=== PATIENT | female | born 1955 | race Caucasian/White ===

== ENCOUNTER 2016-08-28 06:40 | Emergency (ER) | payer OTHER ==
[2016-08-28] MEDS ORDERED: ONDANSETRON 4MG/2ML VIAL (J2405) As Ordered ONE (08:42)
[2016-08-28] MEDS ORDERED: MORPHINE 4 MG/ML 1ML SYRINGE As Ordered ONE (08:42)
[2016-08-28 09:02] LABS: MEAN CORPUSCULAR HGB CONC 33.8 g/dl (32.0-36.5); MEAN CORPUSCULAR VOLUME 88.6 fl (80.0-96.0); RED CELL DISTRIBUTION WIDTH 12.9 % (11.5-14.5); WHITE BLOOD COUNT 9.6 K/mm3 (4.0-10.0)
[2016-08-28 09:35] LABS: ALBUMIN/GLOBULIN RATIO 1.03 (1.00-1.93); BILIRUBIN,DIRECT 0.1 MG/DL (0.0-0.2); BILIRUBIN,TOTAL 0.4 MG/DL (0.2-1.0); CALCIUM LEVEL 9.6 MG/DL (8.8-10.2); CREATININE FOR GFR 1.18 MG/DL (0.55-1.02); GLOMERULAR FILTRATION RATE 49.4 (>45); POTASSIUM SERUM 4.3 MEQ/L (3.5-5.1); TOTAL PROTEIN 7.9 GM/DL (6.4-8.2)
[2016-08-28] MEDS ORDERED: GASTROGRAFIN SOLUTION 30ML (Q9963) As Ordered ONE (09:57)
[2016-08-28] MEDS ORDERED: ISOVUE-370 76% 100ML VIAL (Q9967) As Ordered ONE (11:05)
--- NOTE | 2016-08-28 12:13 | REP ---
Clinical: Acute right-sided abdominal pain. Technique: Axial contrast enhanced images from the lung bases to the pubic symphysis using oral and 100 ml Isovue 370 intravenous contrast material with coronal and sagittal re-formations. Findings: Lung bases are relatively clear and without consolidation, pleural effusion or obvious pneumothorax. Visualized portions of the heart and pericardium suggest mild cardiomegaly along with atherosclerotic changes to the coronary arteries. Liver, spleen, pancreas, gallbladder, bilateral adrenal glands and kidneys are relatively normal. Few renal hypodensities measuring up to 19 mm likely represent simple renal cysts. The enteric system is without obstruction or acute inflammatory process. Colonic diverticulosis noted without acute diverticulitis. Pelvis demonstrates partially collapsed bladder and age-appropriate uterus/adnexa. No pelvic fluid or ascites. No adenopathy. Atherosclerotic changes of the aorta and branch vessels noted without aneurysm. Musculoskeletal structures demonstrate degenerative changes primarily involving the thoracolumbar spine without focal osseous abnormality. Impression: Colonic and predominately sigmoid diverticulosis without acute diverticulitis. Bilateral renal cysts up to 19 mm. Degenerative changes to the thoracolumbar spine. No pelvic fluid/ascites or obvious acute abdominal/pelvic pathology. Signed by Griffin Garduno MD 08/28/2016 12:05 P
--- NOTE | 2016-08-28 13:50 | EDDOCDS ---
Nurse's Notes [facility] Name: Guera Bansal Age: 61 yrs Sex: Female : 1955 Arrival Date: 08/28/2016 Time: 06:40 Bed 8 Private MD: Diagnosis: Generalized abdominal pain Presentation: 08/28 07:01 Presenting complaint: Patient states: "I thought I was passing kidney stones, but it jc4 huts from my belly button over and I noticed that I am swollen". States pain started 4 days ago. Complains of pain that began in umbilical area that radiates into her right flank. Suicide/Homicide risk assessment- the patient denies having any suicidal and/or homicidal ideations and does not present with any other emotional, behavioral or mental health complaints. Transition of care: patient was not received from another setting of care. 07:01 Acuity: PRICILLA Level 3 jc4 07:01 Method Of Arrival: Walkin/Carried/Asstd jc4 07:04 Status: Patient is not a service center representative or dependent. jc4 07:34 Adult Sepsis Screening: The patient does not have new or worsening altered mentation. hs1 Patient's respiratory rate is less than 22. Systolic blood pressure is greater than 100. Patient has a qSOFA score of 0- Negative Sepsis Screen. Triage Assessment: 07:05 General: Appears uncomfortable. Pain: Pain currently is 9 out of 10 on a pain scale. Pt jc4 Declines HIV testing. Historical: - Allergies: Codeine Sulfate (Vomit); - Home Meds: 1. none - PMHx: Kidney stones; Hypertension; - PSHx: ; Lithotripsy; - Social history: Smoking status: Patient uses tobacco products, light tobacco smoker. No barriers to communication noted, The patient speaks fluent Thai. - Family history: Not pertinent. - : The pt / caregiver states he / she is not on anticoagulants. Home medication list is obtained from the patient. - Exposure Risk Screening:: None identified. Screenin:33 Screening information is obtained from the patient. Fall risk: No risks identified. hs1 Assistance ADL's: requires no assistance with activities of daily living. Abuse/DV Screen: The patient / caregiver reports he/she is: not in a situation that causes fear, pain or injury. Nutritional screening: No deficits noted. Advance Directives: There is no active DNR order. home support is adequate. Assessment: 07:28 General: pt reports that while coughing felt like something was ripping and then cough hs1 went away 4 days ago and the pain never went away and has gotten worse. Pt states feels swollen in right upper abdominal and pain is intense.. Pain: Location: right upper quadrant Pain currently is 9 out of 10 on a pain scale. Quality of pain is described as tender, piercing. Neurological: Level of Consciousness is awake, alert, obeys commands. Respiratory: Airway is patent Respiratory effort is even, unlabored, Respiratory pattern is regular, symmetrical. GI: Abdomen is non- distended Bowel sounds present X 4 quads. Abd is tender to palpation in right upper quadrant Guarding noted in right upper quadrant upper right abdominal quadrant upon palpation rigid. Pt reports feels tight and "ripping". Derm: Skin is pink, warm & dry. normal. 08:15 General: Appears Pt speaking with resident review plan of care. Pt still in pain on hs1 right side. No other needs noted. . 08:55 General: Pt tolerated IV well Pt states that she can feel pain medication after hs1 administration. No other needs noted. Pt states that she feels more at ease and feels "giddy". 09:20 Reassessment: Patient appears in no apparent distress at this time. Patient states hs1 feeling better. Patient states symptoms have improved. Pt states pain down to 5 and she can breath easier. Pt noted to be sitting upright on stretcher now chatting with daughter. . 09:20 Adult Sepsis Screening: The patient does not have new or worsening altered mentation. hs1 Patient's respiratory rate is less than 22. Systolic blood pressure is greater than 100. Patient has a qSOFA score of 0- Negative Sepsis Screen. 10:25 General: Appears in no apparent distress, comfortable. Pain: Location: right upper hs1 quadrant Pain currently is 5 out of 10 on a pain scale. Respiratory: Airway is patent Respiratory effort is even, unlabored, Respiratory pattern is regular, symmetrical. GI: No deficits noted. Denies nausea. Derm: Skin is pink, warm & dry. normal. 11:58 Reassessment: Patient appears in no apparent distress at this time. Pt tolerated CT hs1 well with no problems. Pt states resting on stretcher is uncomfortable so she is sitting in a chair at present stating that is much more comfortable. . 12:53 General: Appears in no apparent distress, to be sleeping. Pt appears to be resting with hs1 no needs. Friend returns at present time. Awaiting further plan of care. . 12:55 Adult Sepsis Screening: Patient's respiratory rate is less than 22. Systolic blood hs1 pressure is greater than 100. Patient has a qSOFA score of 0- Negative Sepsis Screen. 13:15 Reassessment: Patient appears in no apparent distress at this time. Patient states hs1 feeling better. Patient states symptoms have improved. Pt speaking with resident about eating and drinking before she goes home. . 13:48 General: Appears in no apparent distress, comfortable, Behavior is appropriate for age, aa3 cooperative. Neurological: Level of Consciousness is awake, alert, Oriented to person, place, time. Respiratory: Airway is patent Respiratory effort is even, unlabored, Respiratory pattern is regular, symmetrical. Vital Signs: 07:05 Pulse 120; Resp 20; Temp 98.4(TE); Pulse Ox 98% on R/A; Height 5 ft. 3 in. (160.02 cm); jc4 Pain 9/10; 07:08 BP 178 / 104; jc4 07:10 BP 184 / 110 LA (man/lg); dls 07:52 BP 172 / 98 LA; hs1 07:52 BP 162 / 88 RA; Pulse 127; hs1 09:20 BP 145 / 94 (auto/); Pulse 107; Resp 18; Pulse Ox 98% ; Pain 5/10; hs1 Vitals: 07:05 Log In Time: August 28, 2016 at 06:39. jc4 ED Course: 06:42 Patient visited by Jessenia Prince. gjb 06:42 Patient moved to Waiting gjb 07:04 Triage Initiated jc4 07:10 Delores Lundy,VERNELL is Primary Nurse. dls 07:10 Patient moved to 8 dls 07:22 Primary Nurse role handed off by Delores Lundy RN deg 07:26 Moris Rojo MD is Attending Physician. br1 07:28 Patient visited by Carrol Mathew RN. hs1 07:34 The patient / caregiver is instructed regarding the plan of care and ED course. hs1 08:30 Patient visited by Carrol Mathew RN. hs1 08:39 Patient visited by Carie Guajardo DO. jo4 08:40 [facility] br1 08:55 Liver Profile Sent. hs1 08:55 Lipase Sent. hs1 08:55 Amylase Sent. hs1 08:55 BMP Sent. hs1 08:55 CBC Sent. hs1 08:56 Patient visited by Moris Rojo MD. br1 08:56 Inserted saline lock: 18 gauge in left antecubital area and blood collected. The hs1 patient tolerated the procedure well. 09:24 Patient name changed from Guera\\S\\K\\S\\Rolf\\S\\ to Guera\\S\\Eliana\\S\\Rolf. EDMS 09:27 [facility] [place] Agreement was scanned into iGl[employer] and attached to record. lg 09:31 Patient visited by Carrol Mathew RN. hs1 10:07 Patient visited by Carrol Mathew RN. hs1 10:51 Patient visited by Carrol Mathew RN. hs1 11:26 Patient visited by Carrol Mathew RN. hs1 11:58 Patient visited by Floyd Cortez PCA. jlf 12:15 CT ABD & PELVIS: IV and Oral Contrast Returned. EDMS 12:42 Patient visited by Floyd Cortez PCA. jlf 13:15 Patient visited by Carrol Mathew RN. hs1 13:23 [facility] is Referral Physician. jo4 13:48 Discontinued IV intact, bleeding controlled, No redness/swelling at site. No procedures aa3 done that require assistance. 13:49 Patient visited by Ruby Huffman RN. aa3 Administered Medications: 08:42 Not Given (Order changed): Ondansetron ODT Oral Disintegrating Tablet 4 mg PO once jo4 08:55 Drug: morphine 4 mg [morphine 4 mg/mL intravenous cartridge (1 mL)] Route: IVP; Site: hs1 left antecubital; 09:20 Follow up: Response: Confirmed pt not driving.; Pain is decreased; see vitals in nurses hs1 notes 08:57 Drug: Ondansetron 4 mg [ondansetron HCl 2 mg/mL intravenous solution (2 mL)] Route: hs1 IVP; Site: left antecubital; 10:05 Drug: Diatrizoate Meglumine & Sodium 10 ml [diatrizoate meglumine and diat.sodium 66 hs1 %-10 % oral solution (10 mL)] Route: PO; 10:35 Drug: Diatrizoate Meglumine & Sodium 10 ml [diatrizoate meglumine and diat.sodium 66 hs1 %-10 % oral solution (10 mL)] Route: PO; Intake: Order Results: Lab Order: CBC; SPEC'08/28/16 08:53 Test: WHITE BLOOD COUNT; Value: 9.6; Range: 4.0-10.0; Units: K/mm3; Status: F Test: RED BLOOD COUNT; Value: 5.03; Range: 4.00-5.40; Units: M/mm3; Status: F Test: HEMOGLOBIN; Value: 15.1; Range: 12.0-16.0; Units: g/dl; Status: F Test: HEMATOCRIT; Value: 44.6; Range: 36.0-47.0; Units: %; Status: F Test: MEAN CORPUSCULAR VOLUME; Value: 88.6; Range: 80.0-96.0; Units: fl; Status: F Test: MEAN CORPUSCULAR HEMOGLOBIN; Value: 30.0; Range: 27.0-33.0; Units: pg; Status: F Test: MEAN CORPUSCULAR HGB CONC; Value: 33.8; Range: 32.0-36.5; Units: g/dl; Status: F Test: RED CELL DISTRIBUTION WIDTH; Value: 12.9; Range: 11.5-14.5; Units: %; Status: F Test: PLATELET COUNT, AUTOMATED; Value: 331; Range: 150-450; Units: k/mm3; Status: F Lab Order: BMP; SPEC08/28/16 08:53 Test: GLUCOSE, FASTING; Value: 125; Range: 80-110; Abnormal: Above high normal; Units: MG/DL; Status: F Test: BLOOD UREA NITROGEN; Value: 16; Range: 7-18; Units: MG/DL; Status: F Test: CREATININE FOR GFR; Value: 1.18; Range: 0.55-1.02; Abnormal: Above high normal; Units: MG/DL; Status: F Test: GLOMERULAR FILTRATION RATE; Value: 49.4; Range: >45; Status: F Test: SODIUM LEVEL; Value: 140; Range: 136-145; Units: MEQ/L; Status: F Test: POTASSIUM SERUM; Value: 4.3; Range: 3.5-5.1; Units: MEQ/L; Status: F Test: CHLORIDE LEVEL; Value: 103; Range: 98-107; Units: MEQ/L; Status: F Test: CARBON DIOXIDE LEVEL; Value: 26; Range: 21-32; Units: MEQ/L; Status: F Test: ANION GAP; Value: 11; Range: 8-16; Units: MEQ/L; Status: F Test: CALCIUM LEVEL; Value: 9.6; Range: 8.8-10.2; Units: MG/DL; Status: F Test Note: ; Units are mL/min/1.73 m2 Chronic Kidney Disease Staging per NKF: Stage I & II GFR >=60 Normal to Mildly Decreased Stage III GFR 30-59 Moderately Decreased Stage IV GFR 15-29 Severely Decreased Stage V GFR <15 Very Little GFR Left ESRD GFR <15 on CURB HOP Lab Order: Amylase; SPEC08/28/16 08:53 Test: AMYLASE; Value: 40; Range: 25-115; Units: U/L; Status: F Lab Order: Lipase; SPEC08/28/16 08:53 Test: LIPASE; Value: 259; Range: 73-393; Units: U/L; Status: F Lab Order: Liver Profile; SPEC08/28/16 08:53 Test: AST/SGOT; Value: 20; Range: 15-37; Units: U/L; Status: F Test: ALT/SGPT; Value: 24; Range: 12-78; Units: U/L; Status: F Test: ALKALINE PHOSPHATASE; Value: 63; Range: 45-117; Units: U/L; Status: F Test: BILIRUBIN,TOTAL; Value: 0.4; Range: 0.2-1.0; Units: MG/DL; Status: F Test: BILIRUBIN,DIRECT; Value: 0.1; Range: 0.0-0.2; Units: MG/DL; Status: F Test: TOTAL PROTEIN; Value: 7.9; Range: 6.4-8.2; Units: GM/DL; Status: F Test: ALBUMIN; Value: 4.0; Range: 3.2-5.2; Units: GM/DL; Status: F Test: ALBUMIN/GLOBULIN RATIO; Value: 1.03; Range: 1.00-1.93; Status: F Radiology Order: CT ABD & PELVIS: IV and Oral Contrast Test: CT ABD & PELVIS: IV and Oral Contrast REASON FOR EXAMINATION: Abdomen Pain; Clinical: Acute right-sided abdominal pain.; ; Technique: Axial contrast enhanced images from the lung bases to the pubic; symphysis using oral and 100 ml Isovue 370 intravenous contrast material with; coronal and sagittal re-formations.; ; Findings:; Lung bases are relatively clear and without consolidation, pleural effusion or; obvious pneumothorax. Visualized portions of the heart and pericardium suggest; mild cardiomegaly along with atherosclerotic changes to the coronary arteries.; ; Liver, spleen, pancreas, gallbladder, bilateral adrenal glands and kidneys are; relatively normal. Few renal hypodensities measuring up to 19 mm likely; represent simple renal cysts. The enteric system is without obstruction or acute; inflammatory process. Colonic diverticulosis noted without acute diverticulitis.; Pelvis demonstrates partially collapsed bladder and age-appropriate; uterus/adnexa. No pelvic fluid or ascites. No adenopathy. Atherosclerotic; changes of the aorta and branch vessels noted without aneurysm. 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 jo4 13:48 Discharge Assessment: Patient awake, alert and oriented x 3. No cognitive and/or aa3 functional deficits noted. Patient verbalized understanding of disposition instructions. 13:49 Discharge Assessment: patient administered narcotics - yes. Pt provided with safe aa3 discharge. The following High Risk Discharge criteria are identified: None. Discharged to home ambulatory, with friend. Condition: good. Discharge instructions given to patient, Instructed on discharge instructions, follow up and referral plans. CT Study completed. Property :Personal belongings accompany Pt. 13:49 Patient left the ED. aa3 Signatures: Dispatcher [employer] EDMS Lashay Lopez, [employer] deg Emelyn Troy RN RN dls Romero Eaton, Reg Reg lg Moris Rojo MD MD br1 Carrol Mathew RN RN hs1 Maricarmen Canales RN RN jc4 Ruby Huffman RN RN aa3 Floyd Cortez, SHAR DIRECTOR OF ANESTHESIA SERVICES Jessenia Hernandez Jane, DO DO jo4 Corrections: (The following items were deleted from the chart) 12:55 09:20 Reassessment: Patient appears in no apparent distress at this time. Patient hs1 states feeling better. Patient states symptoms have improved. Pt states pain down to 5 and she can breath easier. Pt noted to be sitting upright on stretcher now chatting with daughter. . hs1 MTDD
--- NOTE | 2016-08-28 13:50 | EDDOCDS ---
Physician Documentation [facility] Name: Guera Bansal Age: 61 yrs Sex: Female : 1955 Arrival Date: 08/28/2016 Time: 06:40 Bed 8 Private MD: Disposition: 08/28 13:26 I have independently interviewed and examined the patient, and I agree with the br1 investigation, diagnosis and treatment plan as documented by the Resident. Disposition: 08/28/16 13:24 Discharged to Home/Self Care. Impression: Generalized abdominal pain. - Condition is Stable. - Discharge Instructions: Abdominal Pain, Adult. - Medication Reconciliation, Local Pharmacy Hours form. - Follow up: [facility]; When: 1 week; Reason: Recheck today's complaints. - Problem is new. - Symptoms have improved. - Notes: You were seen the emergency department for abdominal pain. Your laboratory results and CT scan of the abdomen and pelvis were within normal limits with no abnormalities noted. Your pain was controlled while in the ED with great improvement noted. Please return to the emergency department if your pain worsens or is not controlled using Aleve, as discussed. Please follow-up with your primary care provider in 1 week. Historical: - Allergies: Codeine Sulfate (Vomit); - Home Meds: 1. none - PMHx: Kidney stones; Hypertension; - PSHx: ; Lithotripsy; - Social history: Smoking status: Patient uses tobacco products, light tobacco smoker. No barriers to communication noted, The patient speaks fluent Cuban. - Family history: Not pertinent. - : The pt / caregiver states he / she is not on anticoagulants. Home medication list is obtained from the patient. - Exposure Risk Screening:: None identified. Vital Signs: 07:05 Pulse 120; Resp 20; Temp 98.4(TE); Pulse Ox 98% on R/A; Height 5 ft. 3 in. (160.02 cm); jc4 Pain 9/10; 07:08 BP 178 / 104; jc4 07:10 BP 184 / 110 LA (man/lg); dls 07:52 BP 172 / 98 LA; hs1 07:52 BP 162 / 88 RA; Pulse 127; hs1 09:20 BP 145 / 94 (auto/); Pulse 107; Resp 18; Pulse Ox 98% ; Pain 5/10; hs1 MDM: 08:32 Ondansetron ODT Oral Disintegrating Tablet 4 mg PO once ordered. jo4 08:32 CBC Ordered. EDMS 08:32 BMP Ordered. EDMS 08:32 Amylase Ordered. EDMS 08:32 Lipase Ordered. EDMS 08:32 Liver Profile Ordered. EDMS 08:37 morphine 4 mg IVP once ordered. jo4 08:37 IV Saline Lock ordered. jo4 08:41 Ondansetron 4 mg IVP once ordered. jo4 09:07 Financial registration complete. lg 09:27 [facility] Payment Agreement was scanned into Soapbox and attached to record. lg 09:41 CBC Reviewed. jo4 09:41 BMP Reviewed. jo4 09:42 Amylase Reviewed. jo4 09:42 Lipase Reviewed. jo4 09:43 Liver Profile Reviewed. jo4 09:44 CT ABD & PELVIS: IV and Oral Contrast Ordered. EDMS 10:18 Diatrizoate Meglumine & Sodium Liquid 10 ml PO once; mix in 290cc of water ordered. hs1 10:18 Diatrizoate Meglumine & Sodium Liquid 10 ml PO once; mix in 290cc of water ordered. hs1 Administered Medications: 08:42 Not Given (Order changed): Ondansetron ODT Oral Disintegrating Tablet 4 mg PO once jo4 08:55 Drug: morphine 4 mg [morphine 4 mg/mL intravenous cartridge (1 mL)] Route: IVP; Site: hs1 left antecubital; 09:20 Follow up: Response: Confirmed pt not driving.; Pain is decreased; see vitals in nurses hs1 notes 08:57 Drug: Ondansetron 4 mg [ondansetron HCl 2 mg/mL intravenous solution (2 mL)] Route: hs1 IVP; Site: left antecubital; 10:05 Drug: Diatrizoate Meglumine & Sodium 10 ml [diatrizoate meglumine and diat.sodium 66 hs1 %-10 % oral solution (10 mL)] Route: PO; 10:35 Drug: Diatrizoate Meglumine & Sodium 10 ml [diatrizoate meglumine and diat.sodium 66 hs1 %-10 % oral solution (10 mL)] Route: PO; Signatures: Dispatcher [employer] EDMS Romero Eaton, Reg Reg lg Moris Rojo MD MD br1 Carrol Mathew RN RN hs1 Maricarmen Canales RN RN jc4 Ruby Huffman RN RN aa3 Carie Guajardo DO DO jo4 The chart was reviewed and I authenticate all verbal orders and agree with the evaluation and treatment provided.Attachments: [facility] Payment Agreement lg MTDD
--- NOTE | 2016-08-30 14:51 | EDDOCDS ---
Physician Documentation [facility] Name: Guera Bansal Age: 61 yrs Sex: Female : 1955 Arrival Date: 08/28/2016 Time: 06:40 Bed 8 Private MD: Disposition: 08/28 13:26 I have independently interviewed and examined the patient, and I agree with the br1 investigation, diagnosis and treatment plan as documented by the Resident. Disposition: 08/28/16 13:24 Discharged to Home/Self Care. Impression: Generalized abdominal pain. - Condition is Stable. - Discharge Instructions: Abdominal Pain, Adult. - Medication Reconciliation, Local Pharmacy Hours form. - Follow up: [facility]; When: 1 week; Reason: Recheck today's complaints. - Problem is new. - Symptoms have improved. - Notes: You were seen the emergency department for abdominal pain. Your laboratory results and CT scan of the abdomen and pelvis were within normal limits with no abnormalities noted. Your pain was controlled while in the ED with great improvement noted. Please return to the emergency department if your pain worsens or is not controlled using Aleve, as discussed. Please follow-up with your primary care provider in 1 week. Historical: - Allergies: Codeine Sulfate (Vomit); - Home Meds: 1. none - PMHx: Kidney stones; Hypertension; - PSHx: ; Lithotripsy; - Social history: Smoking status: Patient uses tobacco products, light tobacco smoker. No barriers to communication noted, The patient speaks fluent Turkish. - Family history: Not pertinent. - : The pt / caregiver states he / she is not on anticoagulants. Home medication list is obtained from the patient. - Exposure Risk Screening:: None identified. Vital Signs: 07:05 Pulse 120; Resp 20; Temp 98.4(TE); Pulse Ox 98% on R/A; Height 5 ft. 3 in. (160.02 cm); jc4 Pain 9/10; 07:08 BP 178 / 104; jc4 07:10 BP 184 / 110 LA (man/lg); dls 07:52 BP 172 / 98 LA; hs1 07:52 BP 162 / 88 RA; Pulse 127; hs1 09:20 BP 145 / 94 (auto/); Pulse 107; Resp 18; Pulse Ox 98% ; Pain 5/10; hs1 MDM: 08:32 Ondansetron ODT Oral Disintegrating Tablet 4 mg PO once ordered. jo4 08:32 CBC Ordered. EDMS 08:32 BMP Ordered. EDMS 08:32 Amylase Ordered. EDMS 08:32 Lipase Ordered. EDMS 08:32 Liver Profile Ordered. EDMS 08:37 morphine 4 mg IVP once ordered. jo4 08:37 IV Saline Lock ordered. jo4 08:41 Ondansetron 4 mg IVP once ordered. jo4 09:07 Financial registration complete. lg 09:27 [facility] Payment Agreement was scanned into [employer] and attached to record. lg 09:41 CBC Reviewed. jo4 09:41 BMP Reviewed. jo4 09:42 Amylase Reviewed. jo4 09:42 Lipase Reviewed. jo4 09:43 Liver Profile Reviewed. jo4 09:44 CT ABD & PELVIS: IV and Oral Contrast Ordered. EDMS 10:18 Diatrizoate Meglumine & Sodium Liquid 10 ml PO once; mix in 290cc of water ordered. hs1 10:18 Diatrizoate Meglumine & Sodium Liquid 10 ml PO once; mix in 290cc of water ordered. hs1 08/29 08:04 T-Sheet-- Draft Copy was scanned into [employer] and attached to record. gb 08:04 Radiology Report was scanned into [employer] and attached to record. gb Administered Medications: 08/28 08:42 Not Given (Order changed): Ondansetron ODT Oral Disintegrating Tablet 4 mg PO once jo4 08:55 Drug: morphine 4 mg [morphine 4 mg/mL intravenous cartridge (1 mL)] Route: IVP; Site: hs1 left antecubital; 09:20 Follow up: Response: Confirmed pt not driving.; Pain is decreased; see vitals in nurses hs1 notes 08:57 Drug: Ondansetron 4 mg [ondansetron HCl 2 mg/mL intravenous solution (2 mL)] Route: hs1 IVP; Site: left antecubital; 10:05 Drug: Diatrizoate Meglumine & Sodium 10 ml [diatrizoate meglumine and diat.sodium 66 hs1 %-10 % oral solution (10 mL)] Route: PO; 10:35 Drug: Diatrizoate Meglumine & Sodium 10 ml [diatrizoate meglumine and diat.sodium 66 hs1 %-10 % oral solution (10 mL)] Route: PO; Signatures: Dispatcher [employer] EDMS Anuja Reis, Reg Reg gb Romero Eaton, Reg Reg lg Moris Rojo MD MD br1 Carrol Mathew RN RN hs1 Maricarmen Canales RN RN jc4 Ruby Huffman RN RN aa3 Carie Guajardo DO DO jo4 The chart was reviewed and I authenticate all verbal orders and agree with the evaluation and treatment provided.Attachments: 09:27 [facility] Payment Agreement lg 08/29 08:04 T-Sheet-- Draft Copy gb Chart Complete MTDD
--- NOTE | 2016-08-30 14:51 | EDDOCDS ---
Nurse's Notes [facility] Name: Guera Bansal Age: 61 yrs Sex: Female : 1955 Arrival Date: 08/28/2016 Time: 06:40 Bed 8 Private MD: Diagnosis: Generalized abdominal pain Presentation: 08/28 07:01 Presenting complaint: Patient states: "I thought I was passing kidney stones, but it jc4 huts from my belly button over and I noticed that I am swollen". States pain started 4 days ago. Complains of pain that began in umbilical area that radiates into her right flank. Suicide/Homicide risk assessment- the patient denies having any suicidal and/or homicidal ideations and does not present with any other emotional, behavioral or mental health complaints. Transition of care: patient was not received from another setting of care. 07:01 Acuity: PRICILLA Level 3 jc4 07:01 Method Of Arrival: Walkin/Carried/Asstd jc4 07:04 Status: Patient is not a visitor services assistant or dependent. jc4 07:34 Adult Sepsis Screening: The patient does not have new or worsening altered mentation. hs1 Patient's respiratory rate is less than 22. Systolic blood pressure is greater than 100. Patient has a qSOFA score of 0- Negative Sepsis Screen. Triage Assessment: 07:05 General: Appears uncomfortable. Pain: Pain currently is 9 out of 10 on a pain scale. Pt jc4 Declines HIV testing. Historical: - Allergies: Codeine Sulfate (Vomit); - Home Meds: 1. none - PMHx: Kidney stones; Hypertension; - PSHx: ; Lithotripsy; - Social history: Smoking status: Patient uses tobacco products, light tobacco smoker. No barriers to communication noted, The patient speaks fluent Turkish. - Family history: Not pertinent. - : The pt / caregiver states he / she is not on anticoagulants. Home medication list is obtained from the patient. - Exposure Risk Screening:: None identified. Screenin:33 Screening information is obtained from the patient. Fall risk: No risks identified. hs1 Assistance ADL's: requires no assistance with activities of daily living. Abuse/DV Screen: The patient / caregiver reports he/she is: not in a situation that causes fear, pain or injury. Nutritional screening: No deficits noted. Advance Directives: There is no active DNR order. home support is adequate. Assessment: 07:28 General: pt reports that while coughing felt like something was ripping and then cough hs1 went away 4 days ago and the pain never went away and has gotten worse. Pt states feels swollen in right upper abdominal and pain is intense.. Pain: Location: right upper quadrant Pain currently is 9 out of 10 on a pain scale. Quality of pain is described as tender, piercing. Neurological: Level of Consciousness is awake, alert, obeys commands. Respiratory: Airway is patent Respiratory effort is even, unlabored, Respiratory pattern is regular, symmetrical. GI: Abdomen is non- distended Bowel sounds present X 4 quads. Abd is tender to palpation in right upper quadrant Guarding noted in right upper quadrant upper right abdominal quadrant upon palpation rigid. Pt reports feels tight and "ripping". Derm: Skin is pink, warm & dry. normal. 08:15 General: Appears Pt speaking with resident review plan of care. Pt still in pain on hs1 right side. No other needs noted. . 08:55 General: Pt tolerated IV well Pt states that she can feel pain medication after hs1 administration. No other needs noted. Pt states that she feels more at ease and feels "giddy". 09:20 Reassessment: Patient appears in no apparent distress at this time. Patient states hs1 feeling better. Patient states symptoms have improved. Pt states pain down to 5 and she can breath easier. Pt noted to be sitting upright on stretcher now chatting with daughter. . 09:20 Adult Sepsis Screening: The patient does not have new or worsening altered mentation. hs1 Patient's respiratory rate is less than 22. Systolic blood pressure is greater than 100. Patient has a qSOFA score of 0- Negative Sepsis Screen. 10:25 General: Appears in no apparent distress, comfortable. Pain: Location: right upper hs1 quadrant Pain currently is 5 out of 10 on a pain scale. Respiratory: Airway is patent Respiratory effort is even, unlabored, Respiratory pattern is regular, symmetrical. GI: No deficits noted. Denies nausea. Derm: Skin is pink, warm & dry. normal. 11:58 Reassessment: Patient appears in no apparent distress at this time. Pt tolerated CT hs1 well with no problems. Pt states resting on stretcher is uncomfortable so she is sitting in a chair at present stating that is much more comfortable. . 12:53 General: Appears in no apparent distress, to be sleeping. Pt appears to be resting with hs1 no needs. Friend returns at present time. Awaiting further plan of care. . 12:55 Adult Sepsis Screening: Patient's respiratory rate is less than 22. Systolic blood hs1 pressure is greater than 100. Patient has a qSOFA score of 0- Negative Sepsis Screen. 13:15 Reassessment: Patient appears in no apparent distress at this time. Patient states hs1 feeling better. Patient states symptoms have improved. Pt speaking with resident about eating and drinking before she goes home. . 13:48 General: Appears in no apparent distress, comfortable, Behavior is appropriate for age, aa3 cooperative. Neurological: Level of Consciousness is awake, alert, Oriented to person, place, time. Respiratory: Airway is patent Respiratory effort is even, unlabored, Respiratory pattern is regular, symmetrical. Vital Signs: 07:05 Pulse 120; Resp 20; Temp 98.4(TE); Pulse Ox 98% on R/A; Height 5 ft. 3 in. (160.02 cm); jc4 Pain 9/10; 07:08 BP 178 / 104; jc4 07:10 BP 184 / 110 LA (man/lg); dls 07:52 BP 172 / 98 LA; hs1 07:52 BP 162 / 88 RA; Pulse 127; hs1 09:20 BP 145 / 94 (auto/); Pulse 107; Resp 18; Pulse Ox 98% ; Pain 5/10; hs1 Vitals: 07:05 Log In Time: August 28, 2016 at 06:39. jc4 ED Course: 06:42 Patient visited by Jessenia Prince. gjb 06:42 Patient moved to Waiting gjb 07:04 Triage Initiated jc4 07:10 Delores Lundy,VERNELL is Primary Nurse. dls 07:10 Patient moved to 8 dls 07:22 Primary Nurse role handed off by Delores Lundy RN deg 07:26 Moris Rojo MD is Attending Physician. br1 07:28 Patient visited by Carrol Mathew RN. hs1 07:34 The patient / caregiver is instructed regarding the plan of care and ED course. hs1 08:30 Patient visited by Carrol Mathew RN. hs1 08:39 Patient visited by Carie Guajardo DO. jo4 08:40 [facility] br1 08:55 Liver Profile Sent. hs1 08:55 Lipase Sent. hs1 08:55 Amylase Sent. hs1 08:55 BMP Sent. hs1 08:55 CBC Sent. hs1 08:56 Patient visited by Moris Rojo MD. br1 08:56 Inserted saline lock: 18 gauge in left antecubital area and blood collected. The hs1 patient tolerated the procedure well. 09:24 Patient name changed from Guera\\S\\K\\S\\Rolf\\S\\ to Guera\\S\\Eliana\\S\\Rolf. EDMS 09:27 [facility] Payment Agreement was scanned into Fluor[employer] and attached to record. lg 09:31 Patient visited by Carrol Mathew RN. hs1 10:07 Patient visited by Carrol Mathew RN. hs1 10:51 Patient visited by Carrol Mathew RN. hs1 11:26 Patient visited by Carrol Mathew RN. hs1 11:58 Patient visited by Floyd Cortez PCA. jlf 12:15 CT ABD & PELVIS: IV and Oral Contrast Returned. EDMS 12:42 Patient visited by Floyd Cortez PCA. jlf 13:15 Patient visited by Carrol Mathew RN. hs1 13:23 [facility] is Referral Physician. jo4 13:48 Discontinued IV intact, bleeding controlled, No redness/swelling at site. No procedures aa3 done that require assistance. 13:49 Patient visited by Ruby Huffman RN. aa3 08/29 08:04 T-Sheet-- Draft Copy was scanned into [employer] and attached to record. gb 08:04 Radiology Report was scanned into [employer] and attached to record. gb Administered Medications: 08/28 08:42 Not Given (Order changed): Ondansetron ODT Oral Disintegrating Tablet 4 mg PO once jo4 08:55 Drug: morphine 4 mg [morphine 4 mg/mL intravenous cartridge (1 mL)] Route: IVP; Site: hs1 left antecubital; 09:20 Follow up: Response: Confirmed pt not driving.; Pain is decreased; see vitals in nurses hs1 notes 08:57 Drug: Ondansetron 4 mg [ondansetron HCl 2 mg/mL intravenous solution (2 mL)] Route: hs1 IVP; Site: left antecubital; 10:05 Drug: Diatrizoate Meglumine & Sodium 10 ml [diatrizoate meglumine and diat.sodium 66 hs1 %-10 % oral solution (10 mL)] Route: PO; 10:35 Drug: Diatrizoate Meglumine & Sodium 10 ml [diatrizoate meglumine and diat.sodium 66 hs1 %-10 % oral solution (10 mL)] Route: PO; Intake: Order Results: Lab Order: CBC; SPEC'M 08/28/16 08:53 Test: WHITE BLOOD COUNT; Value: 9.6; Range: 4.0-10.0; Units: K/mm3; Status: F Test: RED BLOOD COUNT; Value: 5.03; Range: 4.00-5.40; Units: M/mm3; Status: F Test: HEMOGLOBIN; Value: 15.1; Range: 12.0-16.0; Units: g/dl; Status: F Test: HEMATOCRIT; Value: 44.6; Range: 36.0-47.0; Units: %; Status: F Test: MEAN CORPUSCULAR VOLUME; Value: 88.6; Range: 80.0-96.0; Units: fl; Status: F Test: MEAN CORPUSCULAR HEMOGLOBIN; Value: 30.0; Range: 27.0-33.0; Units: pg; Status: F Test: MEAN CORPUSCULAR HGB CONC; Value: 33.8; Range: 32.0-36.5; Units: g/dl; Status: F Test: RED CELL DISTRIBUTION WIDTH; Value: 12.9; Range: 11.5-14.5; Units: %; Status: F Test: PLATELET COUNT, AUTOMATED; Value: 331; Range: 150-450; Units: k/mm3; Status: F Lab Order: BMP; SPEC'M 08/28/16 08:53 Test: GLUCOSE, FASTING; Value: 125; Range: 80-110; Abnormal: Above high normal; Units: MG/DL; Status: F Test: BLOOD UREA NITROGEN; Value: 16; Range: 7-18; Units: MG/DL; Status: F Test: CREATININE FOR GFR; Value: 1.18; Range: 0.55-1.02; Abnormal: Above high normal; Units: MG/DL; Status: F Test: GLOMERULAR FILTRATION RATE; Value: 49.4; Range: >45; Status: F Test: SODIUM LEVEL; Value: 140; Range: 136-145; Units: MEQ/L; Status: F Test: POTASSIUM SERUM; Value: 4.3; Range: 3.5-5.1; Units: MEQ/L; Status: F Test: CHLORIDE LEVEL; Value: 103; Range: 98-107; Units: MEQ/L; Status: F Test: CARBON DIOXIDE LEVEL; Value: 26; Range: 21-32; Units: MEQ/L; Status: F Test: ANION GAP; Value: 11; Range: 8-16; Units: MEQ/L; Status: F Test: CALCIUM LEVEL; Value: 9.6; Range: 8.8-10.2; Units: MG/DL; Status: F Test Note: ; Units are mL/min/1.73 m2 Chronic Kidney Disease Staging per NKF: Stage I & II GFR >=60 Normal to Mildly Decreased Stage III GFR 30-59 Moderately Decreased Stage IV GFR 15-29 Severely Decreased Stage V GFR <15 Very Little GFR Left ESRD GFR <15 on SALON ASSISTANT Lab Order: Amylase; SPEC' 08/28/16 08:53 Test: AMYLASE; Value: 40; Range: 25-115; Units: U/L; Status: F Lab Order: Lipase; SPEC 08/28/16 08:53 Test: LIPASE; Value: 259; Range: 73-393; Units: U/L; Status: F Lab Order: Liver Profile; SPEC 08/28/16 08:53 Test: AST/SGOT; Value: 20; Range: 15-37; Units: U/L; Status: F Test: ALT/SGPT; Value: 24; Range: 12-78; Units: U/L; Status: F Test: ALKALINE PHOSPHATASE; Value: 63; Range: 45-117; Units: U/L; Status: F Test: BILIRUBIN,TOTAL; Value: 0.4; Range: 0.2-1.0; Units: MG/DL; Status: F Test: BILIRUBIN,DIRECT; Value: 0.1; Range: 0.0-0.2; Units: MG/DL; Status: F Test: TOTAL PROTEIN; Value: 7.9; Range: 6.4-8.2; Units: GM/DL; Status: F Test: ALBUMIN; Value: 4.0; Range: 3.2-5.2; Units: GM/DL; Status: F Test: ALBUMIN/GLOBULIN RATIO; Value: 1.03; Range: 1.00-1.93; Status: F Radiology Order: CT ABD & PELVIS: IV and Oral Contrast Test: CT ABD & PELVIS: IV and Oral Contrast REASON FOR EXAMINATION: Abdomen Pain; Clinical: Acute right-sided abdominal pain.; ; Technique: Axial contrast enhanced images from the lung bases to the pubic; symphysis using oral and 100 ml Isovue 370 intravenous contrast material with; coronal and sagittal re-formations.; ; Findings:; Lung bases are relatively clear and without consolidation, pleural effusion or; obvious pneumothorax. Visualized portions of the heart and pericardium suggest; mild cardiomegaly along with atherosclerotic changes to the coronary arteries.; ; Liver, spleen, pancreas, gallbladder, bilateral adrenal glands and kidneys are; relatively normal. Few renal hypodensities measuring up to 19 mm likely; represent simple renal cysts. The enteric system is without obstruction or acute; inflammatory process. Colonic diverticulosis noted without acute diverticulitis.; Pelvis demonstrates partially collapsed bladder and age-appropriate; uterus/adnexa. No pelvic fluid or ascites. No adenopathy. Atherosclerotic; changes of the aorta and branch vessels noted without aneurysm. 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 jo4 13:48 Discharge Assessment: Patient awake, alert and oriented x 3. No cognitive and/or aa3 functional deficits noted. Patient verbalized understanding of disposition instructions. 13:49 Discharge Assessment: patient administered narcotics - yes. Pt provided with safe aa3 discharge. The following High Risk Discharge criteria are identified: None. Discharged to home ambulatory, with friend. Condition: good. Discharge instructions given to patient, Instructed on discharge instructions, follow up and referral plans. CT Study completed. Property :Personal belongings accompany Pt. 13:49 Patient left the ED. aa3 Signatures: Dispatcher [employer] EDMS Lashay Lopez, Drafter Detail Unit deg Emelyn Troy, RN RN dls Anuja Reis, Reg Reg gb Romero Eaton, Reg Reg lg Moris Rojo MD MD br1 Carrol Mathew RN RN hs1 Maricarmen Canales RN RN jc4 Ruby HuffmanRN RN aa3 Floyd Cortez, SHAR FRAME WIRER Jessenia Hernandez Jane, DO DO jo4 Corrections: (The following items were deleted from the chart) 12:55 09:20 Reassessment: Patient appears in no apparent distress at this time. Patient hs1 states feeling better. Patient states symptoms have improved. Pt states pain down to 5 and she can breath easier. Pt noted to be sitting upright on stretcher now chatting with daughter. . hs1 Chart Complete MTDD
--- NOTE | 2016-08-30 14:51 | EDDOCDS ---
Physician Documentation [facility] Name: Guera Bansal Age: 61 yrs Sex: Female : 1955 Arrival Date: 08/28/2016 Time: 06:40 Bed 8 Private MD: Disposition: 08/28 13:26 I have independently interviewed and examined the patient, and I agree with the br1 investigation, diagnosis and treatment plan as documented by the Resident. Disposition: 08/28/16 13:24 Discharged to Home/Self Care. Impression: Generalized abdominal pain. - Condition is Stable. - Discharge Instructions: Abdominal Pain, Adult. - Medication Reconciliation, Local Pharmacy Hours form. - [facility] up: [facility]; When: 1 week; Reason: Recheck today's complaints. - Problem is new. - Symptoms have improved. - Notes: You were seen the emergency department for abdominal pain. Your laboratory results and CT scan of the abdomen and pelvis were within normal limits with no abnormalities noted. Your pain was controlled while in the ED with great improvement noted. Please return to the emergency department if your pain worsens or is not controlled using Aleve, as discussed. Please follow-up with your primary care provider in 1 week. Historical: - Allergies: Codeine Sulfate (Vomit); - Home Meds: 1. none - PMHx: Kidney stones; Hypertension; - PSHx: ; Lithotripsy; - Social history: Smoking status: Patient uses tobacco products, light tobacco smoker. No barriers to communication noted, The patient speaks fluent Puerto Rican. - Family history: Not pertinent. - : The pt / caregiver states he / she is not on anticoagulants. Home medication list is obtained from the patient. - Exposure Risk Screening:: None identified. Vital Signs: 07:05 Pulse 120; Resp 20; Temp 98.4(TE); Pulse Ox 98% on R/A; Height 5 ft. 3 in. (160.02 cm); jc4 Pain 9/10; 07:08 BP 178 / 104; jc4 07:10 BP 184 / 110 LA (man/lg); dls 07:52 BP 172 / 98 LA; hs1 07:52 BP 162 / 88 RA; Pulse 127; hs1 09:20 BP 145 / 94 (auto/); Pulse 107; Resp 18; Pulse Ox 98% ; Pain 5/10; hs1 MDM: 08:32 Ondansetron ODT Oral Disintegrating Tablet 4 mg PO once ordered. jo4 08:32 CBC Ordered. EDMS 08:32 BMP Ordered. EDMS 08:32 Amylase Ordered. EDMS 08:32 Lipase Ordered. EDMS 08:32 Liver Profile Ordered. EDMS 08:37 morphine 4 mg IVP once ordered. jo4 08:37 IV Saline Lock ordered. jo4 08:41 Ondansetron 4 mg IVP once ordered. jo4 09:07 Financial registration complete. lg 09:27 [facility] Payment Agreement was scanned into [employer]nooble and attached to record. lg 09:41 CBC Reviewed. jo4 09:41 BMP Reviewed. jo4 09:42 Amylase Reviewed. jo4 09:42 Lipase Reviewed. jo4 09:43 Liver Profile Reviewed. jo4 09:44 CT ABD & PELVIS: IV and Oral Contrast Ordered. EDMS 10:18 Diatrizoate Meglumine & Sodium Liquid 10 ml PO once; mix in 290cc of water ordered. hs1 10:18 Diatrizoate Meglumine & Sodium Liquid 10 ml PO once; mix in 290cc of water ordered. hs1 08/29 08:04 T-Sheet-- Draft Copy was scanned into [employer]nooble and attached to record. gb 08:04 Radiology Report was scanned into [employer]nooble and attached to record. gb Administered Medications: 08/28 08:42 Not Given (Order changed): Ondansetron ODT Oral Disintegrating Tablet 4 mg PO once jo4 08:55 Drug: morphine 4 mg [morphine 4 mg/mL intravenous cartridge (1 mL)] Route: IVP; Site: hs1 left antecubital; 09:20 Follow up: Response: Confirmed pt not driving.; Pain is decreased; see vitals in nurses hs1 notes 08:57 Drug: Ondansetron 4 mg [ondansetron HCl 2 mg/mL intravenous solution (2 mL)] Route: hs1 IVP; Site: left antecubital; 10:05 Drug: Diatrizoate Meglumine & Sodium 10 ml [diatrizoate meglumine and diat.sodium 66 hs1 %-10 % oral solution (10 mL)] Route: PO; 10:35 Drug: Diatrizoate Meglumine & Sodium 10 ml [diatrizoate meglumine and diat.sodium 66 hs1 %-10 % oral solution (10 mL)] Route: PO; Signatures: Dispatcher [employer] EDMS Anuja Reis, Reg Reg gb Romero Eaton, Reg Reg lg Moris Rojo MD MD br1 Carrol Mathew RN RN hs1 Maricarmen Canales RN RN jc4 Ruby Huffman RN RN aa3 Carie Guajardo DO DO jo4 The chart was reviewed and I authenticate all verbal orders and agree with the evaluation and treatment provided.Attachments: 09:27 [facility] Payment Agreement lg 08/29 08:04 T-Sheet-- Draft Copy gb Chart Complete MTDD
== END 2016-08-28 13:49 | disposition home or self-care (01) ==
LOC: M ED 06:40
DX: R10.84 Generalized abdominal pain (principal); I10 Essential (primary) hypertension; F17.210 Nicotine dependence, cigarettes, uncomplicated; Z88.5 Allergy status to narcotic agent
CPT/HCPCS: 36415; 74177; 80048; 80076; 82150; 83690; 85027; 96374; 96375; 99284; J2405; Q9963; Q9967

== ENCOUNTER → 2016-09-13 | Outpatient (REF) | payer OTHER ==
[2016-09-13 10:59] LABS: REASON FOR REVIEW COMPREHENSIVE REVIEW
[2016-09-13 11:03] LABS: MEAN CORPUSCULAR HEMOGLOBIN 29.5 pg (27.0-33.0); MEAN CORPUSCULAR HGB CONC 32.8 g/dl (32.0-36.5); MEAN CORPUSCULAR VOLUME 89.9 fl (80.0-96.0); PLATELET COUNT, AUTOMATED 306 k/mm3 (150-450); WHITE BLOOD COUNT 4.8 K/mm3 (4.0-10.0)
[2016-09-13 11:07] LABS: INR 0.86
[2016-09-13 11:23] LABS: ALBUMIN 3.9 GM/DL (3.2-5.2); ALKALINE PHOSPHATASE 55 U/L (45-117); ALT/SGPT 22 U/L (12-78); ANION GAP 5 MEQ/L (8-16); AST/SGOT 18 U/L (15-37); BILIRUBIN,TOTAL 0.5 MG/DL (0.2-1.0); BLOOD UREA NITROGEN 12 MG/DL (7-18); CARBON DIOXIDE LEVEL 32 MEQ/L (21-32); CHLORIDE LEVEL 107 MEQ/L (98-107); CHOLESTEROL LEVEL 273 MG/DL (<200); CREATININE FOR GFR 0.92 MG/DL (0.55-1.02); GLOMERULAR FILTRATION RATE > 60.0 (>45); GLUCOSE, FASTING 95 MG/DL (80-110); POTASSIUM SERUM 4.6 MEQ/L (3.5-5.1); SODIUM LEVEL 144 MEQ/L (136-145); TOTAL PROTEIN 6.9 GM/DL (6.4-8.2); TRIGLYCERIDES LEVEL 163 MG/DL (<150)
== END ==
LOC: M SFHCPLAZ 08:09
PROVIDERS: ATTEND Family Medicine
DX: R23.8 Other skin changes (principal); Z13.220 Encounter for screening for lipoid disorders

== ENCOUNTER 2016-11-20 15:03 | Emergency (ER) | payer OTHER ==
[~2016-11-20] VITALS: Ht 160 cm; Wt 107.5 kg
[2016-11-20 16:08] LABS: BASO % 0.5 % (0.0-1.0); EOS # 0.1 K/mm3 (0.0-0.50); EOS % 1.5 % (0.0-3.0); LARGE UNSTAINED CELL # 0.1 K/mm3 (0.0-0.4); LARGE UNSTAINED CELL % 1.2 % (0.0-4.0); LYMPH # 1.3 K/mm3 (1.5-4.5); LYMPH % 15.3 % (24.0-44.0); MEAN CORPUSCULAR HEMOGLOBIN 29.6 pg (27.0-33.0); MEAN CORPUSCULAR HGB CONC 33.2 g/dl (32.0-36.5); MEAN CORPUSCULAR VOLUME 89.1 fl (80.0-96.0); MONO # 0.5 K/mm3 (0.0-0.8); NEUTROPHILS # 5.8 K/mm3 (1.8-7.7); NEUTROPHILS % 75.6 % (36.0-66.0); PLATELET COUNT, AUTOMATED 249 k/mm3 (150-450); RED CELL DISTRIBUTION WIDTH 12.7 % (11.5-14.5); WHITE BLOOD COUNT 7.6 K/mm3 (4.0-10.0)
[2016-11-20 16:51] LABS: ANION GAP 9 MEQ/L (8-16); BLOOD UREA NITROGEN 11 MG/DL (7-18); CALCIUM LEVEL 9.1 MG/DL (8.8-10.2); CARBON DIOXIDE LEVEL 27 MEQ/L (21-32); CHLORIDE LEVEL 102 MEQ/L (98-107); CREATININE FOR GFR 0.91 MG/DL (0.55-1.02); FREE T4 1.21 NG/DL (0.76-1.46); GLOMERULAR FILTRATION RATE > 60.0 (>45); GLUCOSE, FASTING 112 MG/DL (80-110); SODIUM LEVEL 138 MEQ/L (136-145)
[2016-11-20] MEDS ORDERED: LOSA100T36 PO (17:43)
[2016-11-20] MEDS ORDERED: LOSARTAN 50 MG TAB PO ONE (17:45)
[2016-11-20 17:50] VITALS: BP 203/104
[2016-11-20 18:00] VITALS: BP 204/103
--- NOTE | 2016-11-20 21:51 | ECGEPIP ---
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
== END 2016-11-20 18:02 | disposition home or self-care (01) ==
LOC: M ED 15:48
DX: I10 Essential (primary) hypertension (principal); F17.200 Nicotine dependence, unspecified, uncomplicated; Z88.5 Allergy status to narcotic agent

== ENCOUNTER → 2019-05-20 | Outpatient (REF) | payer MEDICARE, MEDICAID ==
[~2019-05-20] MED LIST: LOSA100T50 PO
[2019-05-20 14:42] LABS: FOLATE > 24.0 NG/ML; VITAMIN B12 LEVEL 543 PG/ML
[2019-05-24 08:06] LABS: CERULOPLASMIN 33.4 mg/dL (19.0-39.0); VITAMIN B1 LEVEL WHOLE BLOOD 153.4 nmol/L (66.5-200.0); VITAMIN B6,PYRIDOXAL PHOSPHATE 38.1 ug/L (2.0-32.8); VITAMIN E(ALPHA TOCOPHEROL) 11.3 mg/L (9.0-29.0); VITAMIN E(GAMMA TOCOPHEROL) 0.9 mg/L (0.5-4.9)
== END ==
LOC: M LABNEURO 10:57
PROVIDERS: ATTEND Psychiatry & Neurology Neurology
DX: D51.9 Vitamin B12 deficiency anemia, unspecified (principal); E51.9 Thiamine deficiency, unspecified; E83.01 Wilson's disease